=== PATIENT | female | born 1970 | race Hispanic/Latino ===

== ENCOUNTER → 2017-09-02 | Outpatient (CLI) | payer OTHER | END | disposition home or self-care (01) | LOC: RAH 13:06 | PROVIDERS: ATTEND Family Medicine Adult Medicine | DX: Z12.31 Encounter for screening mammogram for malignant neoplasm of breast (principal) | CPT/HCPCS: 77067 ==

== ENCOUNTER → 2018-09-03 | Outpatient (CLI) | payer OTHER | END | disposition home or self-care (01) | LOC: RAH 10:30 | PROVIDERS: ATTEND Family Medicine Adult Medicine | DX: Z12.31 Encounter for screening mammogram for malignant neoplasm of breast (principal) | CPT/HCPCS: 77067 ==

== ENCOUNTER → 2021-09-06 | Outpatient (CLI) | payer BC, SELFPAY | END | disposition home or self-care (01) | LOC: RAH 15:37 | PROVIDERS: ATTEND Family Medicine Adult Medicine | DX: Z12.31 Encounter for screening mammogram for malignant neoplasm of breast (principal) | CPT/HCPCS: 77067 ==

== ENCOUNTER → 2022-09-25 | Outpatient (CLI) | payer BC | END | disposition home or self-care (01) | LOC: RAH 08:12 | PROVIDERS: ATTEND Family Medicine | DX: Z12.31 Encounter for screening mammogram for malignant neoplasm of breast (principal) | CPT/HCPCS: 77067 ==

== ENCOUNTER → 2023-10-16 | Outpatient (CLI) | payer BC | END | disposition home or self-care (01) | LOC: RAH 08:13 | PROVIDERS: ATTEND Family Medicine Adult Medicine | DX: Z12.31 Encounter for screening mammogram for malignant neoplasm of breast (principal); R92.323 Mammographic fibroglandular density, bilateral breasts | CPT/HCPCS: 77067 ==

== ENCOUNTER → 2024-04-08 | Outpatient (CLI) | payer BC ==
--- NOTE | 2024-04-08 16:51 | HMCIMG ---
US TRANSVAGINAL NON-OB REASON: POSTMENOPAUSAL BLEEDING COMPARISON: None TECHNIQUE: Transvaginal pelvic sonogram FINDINGS: Uterus is 7.4 x 4.3 x 4.7 cm. Endometrium is 6 mm. There is an 8 mm nodule anterior myometrium which may be a fibroid. There is a 2.5 cm right ovarian cyst or follicle. Left ovary appears unremarkable. There are no adnexal masses. There is no free fluid in the cul-de-sac. IMPRESSION: 1. Mildly prominent uterus, there may also be an 8 mm anterior myometrial fibroid. 2. 2.5 cm right ovarian cyst.
== END | disposition home or self-care (01) ==
LOC: RAH 15:31
PROVIDERS: ATTEND Obstetrics & Gynecology
DX: N83.201 Unspecified ovarian cyst, right side (principal); N95.0 Postmenopausal bleeding; D25.9 Leiomyoma of uterus, unspecified
CPT/HCPCS: 76830

== ENCOUNTER → 2024-10-26 | Outpatient (CLI) | payer BC ==
--- NOTE | 2024-10-27 09:48 | HMCIMG ---
EXAMINATION: COMPLETE TRANSVAGINAL ULTRASOUND OF PELVIS. CLINICAL HISTORY: Post-menopausal bleeding. COMPARISON: Prior ultrasound dated 04/08/2024. TECHNIQUE: Multiple real-time grayscale images of the pelvis were obtained with transvaginal transducer. In addition, color Doppler is medically necessary to perform to assess for vascularity and blood flow. FINDINGS: The uterus is anteverted, normal in caliber and measures 10.2 x 5.6 x 5.4 cm in the craniocaudal, AP, and transverse dimensions respectively. There is an intramural fibroid that measures 1.0 x 0.4 x 1.0 cm in the anterior wall. The endometrium is slightly thickened and measures approximately 0.7 cm. Cervix appears normal. The right ovary is normal in caliber and measures 4.1 x 2.6 x 2.3 cm. There is a simple cyst that measures 2.6 x 2.4 x 2.1 cm. The left ovary is normal in caliber and measures 2.1 x 1.8 x 2.4 cm. There is no free fluid in the cul-de-sac. IMPRESSION: Small uterine fibroid. Slightly thickened endometrium. Contrast-enhanced MR imaging of the pelvis may be obtained for further evaluation. Right ovarian simple cyst. /[place]
== END | disposition home or self-care (01) ==
LOC: RAH 10:40
PROVIDERS: ATTEND Obstetrics & Gynecology
DX: Z12.31 Encounter for screening mammogram for malignant neoplasm of breast (principal); D25.1 Intramural leiomyoma of uterus; N83.201 Unspecified ovarian cyst, right side; N85.4 Malposition of uterus; N95.0 Postmenopausal bleeding
CPT/HCPCS: 76830; 77067